=== PATIENT | male | born 1990 | race Two or more races ===

== ENCOUNTER 2023-07-31 13:19 | Emergency (ER) | payer MEDICAID ==
[~2023-07-31] VITALS: Ht 182.9 cm; Wt 85.0 kg
[2023-07-31 13:26] VITALS: TEMP 98.6; O2SAT 96
[2023-07-31] MEDS: FENTANYL CITRATE/PF 50MCG/ML 2ML VIAL IV ONE (14:00)
[2023-07-31] MEDS: ONDANSETRON HCL 4MG/2ML INJ IV ONE (14:00)
[2023-07-31] MEDS ORDERED: OXYC-100 MT (15:27)
[2023-07-31 15:42] VITALS: BP 151/104; PULSE 82; RESP 16
[2023-07-31] MEDS: OXYCODONE HCL/ACETAMINOPHEN 5/325MG TABLET PO ONE (15:42)
== END 2023-07-31 15:47 | disposition home or self-care (01) ==
LOC: ER 13:19
DX: S53.104A Unspecified dislocation of right ulnohumeral joint, initial encounter (principal); W18.39XA Other fall on same level, initial encounter; Y93.89 Activity, other specified; Y92.89 Other specified places as the place of occurrence of the external cause; Y99.8 Other external cause status
CPT/HCPCS: 99284; 24600; 96374; 96375; 73080; J3010; J2405